=== PATIENT | female | born 1990 | race African-American/Black ===

== ENCOUNTER 2017-02-25 10:40 | Emergency (ER) | payer MEDICARE, OTHER ==
[~2017-02-25] VITALS: Ht 167.6 cm; Wt 62.0 kg
[~2017-02-25 10:40] MED LIST: ACET500C5 PO; ALBU8.5H3 INH; AMO500 PO; AZIT250T94 PO; IBUP400T22 PO; PRED20TA PO; UDROBDM PO
[2017-02-25 10:44] VITALS: Ht 167.6 cm; Wt 62.0 kg
[2017-02-25] MEDS ORDERED: IBUP-1542 PO (11:18)
[2017-02-25] MEDS ORDERED: GUAI-637 PO (11:18)
[2017-02-25] MEDS ORDERED: AZIT250T94 PO (11:19)
[2017-02-25] MEDS ORDERED: BENZ100C70 PO (11:19)
--- NOTE | 2017-02-25 11:25 | ERD ---
ER Documentation Chief Complaint Date/Time DATE: 02/25/17 TIME: 11:20 Chief Complaint pt bib self with c/o cough and cold for a few days HPI Patient is a 18-year-old female who presents to the emergency department with a cough and nasal congestion 4 days. Patient states her cough is productive in nature with green phlegm production. Patient states her cough is worse at night. Patient denies any wheezing. Patient does report tactile fevers. Patient states her nasal congestion is yellow to green in nature. Patient has been taking Tylenol with minimal alleviation of symptoms. Patient denies any nausea, vomiting, abdominal pain, ear pain, throat pain, body aches, diarrhea. Patient denies receiving the flu vaccine this year. Patient denies any recent travel. No sick contacts. ROS All systems reviewed and are negative except as per history of present illness. Medications Home Meds Active Scripts Azithromycin* (Zithromax*) 250 Mg Tablet, 250 MG PO .ZPACK DIRECTED, #6 TAB TAKE 500 MG (2 TABS) THE FIRST DAY THEN 250 MG (1 TAB) DAYS 2-5 Prov:YESI OSORIO PA-C 02/25/17 Benzonatate* (Tessalon Perle*) 100 Mg Capsule, 100 MG PO Q8H Y for COUGH, #15 CAP Prov:YESI OSORIO PA-C 02/25/17 Guaifenesin* (Robitussin*) 100 Mg/5 Ml Syrup, 100 MG PO Q4H Y for COUGH, #1 BOT Prov:YESI OSORIO PA-C 02/25/17 Ibuprofen* (Motrin*) 600 Mg Tab, 600 MG PO Q6, #30 TAB Prov:YESI OSORIO PA-C 02/25/17 Albuterol Sulfate* (Proair HFA*) 8.5 Gm Hfa.aer.ad, 2 PUFF INH Q4, #1 INHALER Prov:PHI TURNERS Roberto. DO 04/14/16 Prednisone* (Prednisone*) 20 Mg Tab, 60 MG PO DAILY for 5 Days, TAB Prov:RAMYA TURNERSTEDRIKS AYvette DO 04/14/16 Azithromycin* (Zithromax*) 250 Mg Tablet, 250 MG PO .ZPACK DIRECTED, #6 TAB TAKE 500 MG (2 TABS) THE FIRST DAY THEN 250 MG (1 TAB) DAYS 2-5 Prov:LISBETH TURNER DO 04/14/16 Amoxicillin* (Amoxicillin*) 500 Mg Cap, 500 MG PO TID, #21 CAP 0 Refills Prov:YOHANDAVEY GRACIA 01/28/16 Guaifenesin-Dextromethorphan* (Robitussin* DM) 100MG/10MG/5ML Syrup, 5 ML PO Q6H Y for COUGH, #120 ML 0 Refills Prov:YOHANDAVEY PA-C 01/28/16 Ibuprofen* (Motrin*) 400 Mg Tab, 400 MG PO Q6, #30 TAB 0 Refills Prov:YOHANDAVEY PA-C 01/28/16 Acetaminophen* (Tylophen*) 500 Mg Capsule, 1 CAP PO Q6H Y for PAIN AND OR ELEVATED TEMP, #30 CAP 0 Refills Prov:YOHANDAVEY PA-C 01/28/16 Allergies Allergies: Coded Allergies: No Known Allergy (Unverified , 11/10/13) PMhx/Soc History of Surgery: No Anesthesia Reaction: No Hx Neurological Disorder: No Hx Respiratory Disorders: No Hx Cardiac Disorders: No Hx Psychiatric Problems: No Hx Miscellaneous Medical Probl: No Hx Alcohol Use: No Hx Substance Use: No Hx Tobacco Use: No Smoking Status: Never smoker FmHx Family History: No diabetes Physical Exam Vitals Vital Signs Date Time Temp Pulse Resp B/P Pulse Ox O2 Delivery O2 Flow Rate FiO2 02/25/17 10:44 98.3 74 18 120/76 99 Physical Exam GENERAL: Well-developed, well-nourished female. Appears in no acute distress. Speaking in full sentences HEAD: Normocephalic, atraumatic. No deformities or ecchymosis. EYE: Pupils equal, round, and reactive to light. EOMs intact. No conjunctival erythema. No eye discharge. ENT: External ear without any masses or tenderness. Auditory canals clear bilaterally. TM visualized bilaterally, non-erythematous, non-bulging. Nasal mucosa pink with no discharge. Oropharynx is pink without any tonsillar erythema or exudates. No uvula deviation. No kissing tonsils. Nontender to palpation of bilateral mastoid processes NECK: Supple. No meningismus. Normal ROM of the neck. LUNG: Clear to auscultation bilaterally. No rhonchi, wheezing, rales or coarse breath sounds. HEART: Regular rate and rhythm. No murmurs, rubs or gallops. BACK: No midline tenderness. EXTREMITES: Equal pulses bilaterally. No peripheral clubbing, cyanosis or edema. No unilateral leg swelling. NEUROLOGIC: Alert and oriented to person, place and time. Moving all four extremities. 5/5 strength in all extremities. Normal speech. Steady gait. SKIN: Normal color. Warm and dry. No rashes or lesions. Procedures/MDM MEDICAL DECISION MAKING: This is a this is a 26-year-old female who presents with nasal congestion and a productive cough 4 days.. Vital signs were reviewed. Patient was afebrile. Patient was not hypoxic. ENT exam was normal. Lung exam was normal. Given these findings, the patients presentation is most consistent with viral URI. I have a much lower clinical concern for bacterial infections including pneumonia , meningitis, sinusitis, otitis externa, acute otitis media, strep pharyngitis, epiglottitis or peritonsillar abscess. I will give the patient a prescription for azithromycin to be taken only for symptoms persist after 3 days from now. PRESCRIPTIONS: Ibuprofen, Robitussin, Tessalon Perles, Zithromax ' DISCHARGE: At this time, patient is stable for discharge and outpatient management. Supportive therapies such as OTC throat lozenges, salt water gurgles, popsicles and jello discussed. I have instructed the patient to follow-up with his/her primary care physician in 1-2 days. I have instructed the patient to promptly return to the ER for any new or worsening symptoms including increased pain, swelling, fever, nausea, vomiting, weakness or difficulty breathing. The patient and/or family expressed understanding of and agreement with this plan. All questions were answered. Home care instructions were provided. Departure Diagnosis: Primary Impression: Viral URI Condition: Stable Patient Instructions: Preventing Common Respiratory Infections Referrals: [facility] Additional Instructions: Call your primary care doctor TOMORROW for an appointment during the next 1-2 days.See the doctor sooner or return here if your condition worsens before your appointment time. YESI OSORIO PA-C Feb 25, 2017 11:24
== END 2017-02-25 11:36 | disposition home or self-care (01) ==
LOC: FTE 10:40
DX: J06.9 Acute upper respiratory infection, unspecified (principal)
CPT/HCPCS: 99284

== ENCOUNTER 2019-03-31 08:26 | Emergency (ER) | payer MEDICARE, OTHER ==
[~2019-03-31] VITALS: Ht 170.2 cm; Wt 70.0 kg
[~2019-03-31 08:26] MED LIST changes: -ALBU8.5H3 INH; +ALBU8.5H8 INH; -AMO500 PO; +AMOX500C2 PO; +AZIT250T PO; -AZIT250T94 PO; +BENZ-6 PO; +GUAI-637 PO; +GUAI5SYR2 PO; +IBUP-1542 PO; +IBUP-1561 PO; -IBUP400T22 PO; -UDROBDM PO
[2019-03-31 08:30] VITALS: BP 128/69; PULSE 64; RESP 18; Ht 170.2 cm; Wt 70.0 kg
[2019-03-31] MEDS ORDERED: BENZONATATE 100 MG CAP PO ONE (10:30)
[2019-03-31] MEDS ORDERED: PROMETHAZINE/CODEINE 5ML CUP PO ONE (10:30)
[2019-03-31] MEDS ORDERED: DEXAMETHASONE 10 MG/ML 1 ML INJ IM ONE (10:30)
[2019-03-31] MEDS ORDERED: CETI10TA19 PO (10:47)
[2019-03-31] MEDS ORDERED: PROM5SYR2 PO (10:47)
[2019-03-31] MEDS ORDERED: D-ME473S2 PO (10:47)
[2019-03-31] MEDS ORDERED: BENZ-6 PO (10:47)
--- NOTE | 2019-03-31 16:09 | ERD ---
ER Documentation Chief Complaint Chief Complaint pt is bib self with c/o cough for 2 days HPI History of Present Illness: 29-year-old female who denies a past medical history coming today with complaint of cough with yellow phlegm been present for 2 days. Patient reports cough is worse at night. Associated symptoms includes a sore throat for 4 days that is no longer present. Denies fever, chills, decreased appetite, inability to swallow. At home pharmacological/nonpharmacological treatment for symptoms: Unnamed antihistamine Denies social concerns; Denies recent foreign travel ROS All systems reviewed and are negative except as per history of present illness. Medications Home Meds Active Scripts Benzonatate* (Tessalon Perle*) 100 Mg Capsule, 100 MG PO Q8H PRN for COUGH, #30 CAP Prov:BILLY POSADAS NP 03/31/19 Cetirizine Hcl* (Cetirizine Hcl*) 10 Mg Tablet, 10 MG PO DAILY for ALLERGIES/COUGH/RUNNY NOSE, #30 TAB Prov:BILLY POSADAS NP 03/31/19 Dextromethorphan Hb-Promethazine Hcl* (Promethazine DM* Syrup) 473 Ml Syrup, 5 ML PO Q6 PRN for DAYTIME COUGH & ALLERGIES, #60 ML Prov:BILLY POSADAS NP 03/31/19 Promethazine HCl/Codeine (Prometh-Codein 6.25-10 mg/5 ml) 5 Ml Syrup, 5 ML PO QHS PRN for NIGHTIME COUGH, #60 Prov:BILLY POSADAS NP 03/31/19 Azithromycin* (Zithromax*) 250 Mg Tablet, 250 MG PO .JEROMY DIRECTED, #6 TAB TAKE 500 MG (2 TABS) THE FIRST DAY THEN 250 MG (1 TAB) DAYS 2-5 Prov:YESI OSORIO-C 02/25/17 Benzonatate* (Tessalon Perle*) 100 Mg Capsule, 100 MG PO Q8H PRN for COUGH, #15 CAP Prov:YESI OSORIO-C 02/25/17 Guaifenesin* (Robitussin*) 100 Mg/5 Ml Syrup, 100 MG PO Q4H PRN for COUGH, #1 BOT Prov:YESI OSORIO-C 02/25/17 Ibuprofen* (Motrin*) 600 Mg Tab, 600 MG PO Q6, #30 TAB Prov:YESI OSORIO PA-C 02/25/17 Albuterol Sulfate* (Proair HFA*) 8.5 Gm Hfa.aer.ad, 2 PUFF INH Q4, #1 INHALER Prov:LISBETH TURNER DO 04/14/16 Prednisone* (Prednisone*) 20 Mg Tab, 60 MG PO DAILY for 5 Days, TAB Prov:LISBETH TURNER DO 04/14/16 Azithromycin* (Zithromax*) 250 Mg Tablet, 250 MG PO .ZPACK DIRECTED, #6 TAB TAKE 500 MG (2 TABS) THE FIRST DAY THEN 250 MG (1 TAB) DAYS 2-5 Prov:LISBETH TURNER DO 04/14/16 Amoxicillin* (Amoxicillin*) 500 Mg Cap, 500 MG PO TID, #21 CAP 0 Refills Prov:DAVEY ALMANZAR PA-C 01/28/16 Guaifenesin-Dextromethorphan* (Robitussin* DM) 100MG/10MG/5ML Syrup, 5 ML PO Q6H PRN for COUGH, #120 ML 0 Refills Prov:DAVEY ALMANZAR PA-C 01/28/16 Ibuprofen* (Motrin*) 400 Mg Tab, 400 MG PO Q6, #30 TAB 0 Refills Prov:DAVEY ALMANZAR PA-C 01/28/16 Acetaminophen* (Tylophen*) 500 Mg Capsule, 1 CAP PO Q6H PRN for PAIN AND OR ELEVATED TEMP, #30 CAP 0 Refills Prov:DAVEY ALMANZAR PA-C 01/28/16 Allergies Allergies: Coded Allergies: doxycycline (Verified Allergy, Unknown, rash on neck, 03/31/19) PMhx/Soc Medical and Surgical Hx: pt denies Surgical Hx History of Surgery: No Anesthesia Reaction: No Hx Neurological Disorder: No Hx Respiratory Disorders: Yes (hx PNA) Hx Cardiac Disorders: No Hx Psychiatric Problems: No Hx Miscellaneous Medical Probl: No Hx Alcohol Use: No Hx Substance Use: No Hx Tobacco Use: No Smoking Status: Never smoker FmHx Family History: No diabetes, No coronary disease Physical Exam Vitals Vital Signs Date Temp Pulse Resp B/P (MAP) Pulse Ox O2 O2 Flow FiO2 Time Delivery Rate 03/31/19 98.3 64 18 128/69 99 08:30 (88) Physical Exam Const: No acute distress Head: Atraumatic Eyes: Normal Conjunctiva ENT: Normal External Ears, Nose. Oropharynx with mild erythema, 2+ tonsils, tonsillar exudate. Neck: Full range of motion. No meningismus. Resp: Clear to auscultation bilaterally Cardio: Regular rate and rhythm, no murmurs Abd: Soft, non tender, non distended. Normal bowel sounds Skin: No petechiae or rashes Back: No midline or flank tenderness Ext: No cyanosis, or edema Neur: Awake and alert Psych: Normal Mood and Affect Results 24 hrs Current Medications Medications Dose Sig/Migel Start Time Status Last (Trade) Ordered Route PRN Stop Time Admin Dose Reason Admin Promethazine 10 ml ONCE ONCE 03/31/19 DC 03/31/19 HCl/ PO 10:30 10:20 Codeine 03/31/19 10:31 (Phenergan/ Codeine) 10 mg ONCE ONCE 03/31/19 DC 03/31/19 Dexamethasone IM 10:30 10:20 (Decadron) 03/31/19 10:31 Benzonatate 200 mg ONCE ONCE 03/31/19 DC 03/31/19 (Tessalon) PO 10:30 10:44 03/31/19 10:31 Procedures/MDM ED course includes a thorough examination and history. Medications: Promethazine/codeine, Tessalon, dexamethasone Imaging: -- Labs: Rapid strep. Low suspicion for life-threatening medical emergency. Low suspicion for cardiopulmonary emergency. Low suspicion for infectious emergency that requires antibiotics at this time. Otherwise healthy patient presenting with constellation of symptoms likely representing productive cough, allergic rhinitis as characterized by history, physical exam findings. Patient reassessment @1108: Patient hemodynamically stable. Patient with decrease in severity of cough. Patient is not able to speak in clear sentences without frequent coughing. No respiratory distress, otherwise relatively well appearing and nontoxic. Disposition given. Patient educated on diagnoses, prescriptions, follow-up care, return precautions. Strict return precautions given for worsening condition; questions answered discharge. Disposition for discharge with followup in 2 days with PCP/clinic. Departure Diagnosis: Primary Impression: Cough Additional Impressions: Allergic rhinitis Allergic rhinitis trigger: unspecified Allergic rhinitis seasonality: unspecified Qualified Codes: J30.9 - Allergic rhinitis, unspecified Tonsillar exudate Condition: Stable Patient Instructions: Cough, Chronic, Uncertain Cause, (Adult), Allergic Rhinitis Referrals: [facility] YOU HAVE RECEIVED A MEDICAL SCREENING EXAM AND THE RESULTS INDICATE THAT YOU DO NOT HAVE A CONDITION THAT REQUIRES URGENT TREATMENT IN THE EMERGENCY DEPARTMENT. FURTHER EVALUATION AND TREATMENT OF YOUR CONDITION CAN WAIT UNTIL YOU ARE SEEN IN YOUR DOCTORS OFFICE WITHIN THE NEXT 1-2 DAYS. IT IS YOUR RESPONSIBILITY TO MAKE AN APPOINTMENT FOR FOLOW-UP CARE. IF YOU HAVE A PRIMARY DOCTOR --you should call your primary doctor and schedule an appointment IF YOU DO NOT HAVE A PRIMARY DOCTOR YOU CAN CALL OUR PHYSICIAN REFERRAL HOTLINE AT IF YOU CAN NOT AFFORD TO SEE A PHYSICIAN YOU CAN CHOSE FROM THE FOLLOWING [facility] [address] [facility]. [facility] [address] [facility] [facility] [address] [facility] [address] [facility]. [facility] [address] [facility]. [facility] [address] [facility] [facility] YOU HAVE RECEIVED A MEDICAL SCREENING EXAM AND THE RESULTS INDICATE THAT YOU DO NOT HAVE A CONDITION THAT REQUIRES URGENT TREATMENT IN THE EMERGENCY DEPARTMENT. FURTHER EVALUATION AND TREATMENT OF YOUR CONDITION CAN WAIT UNTIL YOU ARE SEEN IN YOUR DOCTORS OFFICE WITHIN THE NEXT 1-2 DAYS. IT IS YOUR RESPONSIBILITY TO MAKE AN APPOINTMENT FOR FOLOW-UP CARE. IF YOU HAVE A PRIMARY DOCTOR --you should call your primary doctor and schedule and appointment IF YOU DO NOT HAVE A PRIMARY DOCTOR YOU CAN CALL OUR PHYSICIAN REFERRAL HOTLINE AT . IF YOU CAN NOT AFFORD TO SEE A PHYSICIAN YOU CAN CHOSE FROM THE FOLLOWING [facility] INSTITUTIONS: [facility] [address] [place] [address] [facility] [address] [place] [address] [facility] + [facility] [address] [place] [address] Additional Instructions: Thank you very much for allowing us to participate in your care. Your health and safety is our top priority at [facility]. It is important to read all discharge instructions and education provided in your discharge packet. Call your primary care doctor TOMORROW for an appointment during the next 2-4 days and bring all the information and medications prescribed. Have prescriptions filled and follow precisely the directions on the label. -Cetirizine as an antihistamine that should not cause drowsiness; take this med ication every day for allergy-like symptoms/cough/runny nose. --Benzonatate is a medication that will help with cough suppression. This medication will not make you drowsy. --Promethazine/codeine is a cough syrup that will also help with allergy-like symptoms. This medication may cause drowsiness. Only take this medication at night. Do not operate heavy machinery after taking this medication. -Dextromethorphan/promethazine as a cough syrup that will also help with allergies. This medication is not as strong as the promethazine/codeine, so might be the better choice to take during the daytime.. But it may cause drowsiness. If the symptoms get worse and your provider is unavailable, return to the Emergency Department immediately. BILLY POSADAS NP March 31, 2019 16:09
== END 2019-03-31 11:17 | disposition home or self-care (01) ==
LOC: FTE 08:26
DX: J30.9 Allergic rhinitis, unspecified (principal); J03.90 Acute tonsillitis, unspecified
CPT/HCPCS: 87880; 96372; 99284; J1100